=== PATIENT | female | born 1985 | race Caucasian/White ===

== ENCOUNTER 2016-09-28 12:10 | Emergency (ER) | payer MEDICAID ==
[~2016-09-28] VITALS: Wt 90.5 kg
[2016-09-28 13:36] LABS: URINE BLOOD (Dip) POC Negative (NEGATIVE)
[2016-09-28 13:50] LABS: BASOPHILS % 0.5 % (0.0-2.0); EOSINOPHILS % 0.4 % (0.0-7.0); HEMATOCRIT 33.7 % (37.0-47.0); HEMOGLOBIN 11.4 g/dl (12.0-16.0); LYMPHOCYTES % 21.2 % (15.0-51.0); MEAN CORPUSCULAR HEMOGLOBIN 26.4 pg (29.0-33.0); MEAN CORPUSCULAR HGB CONC 33.8 g/dl (32.0-37.0); MEAN PLATELET VOLUME 8.3 fl (7.4-10.4); MONOCYTE # 0.6 10^3/ul (0.3-0.9); MONOCYTES % 6.4 % (0.0-11.0); NEUTROPHIL # 6.6 10^3/ul (1.6-7.5); NEUTROPHILS % 71.5 % (39.0-77.0); PLATELET COUNT 331 10^3/UL (140-440); RED BLOOD COUNT 4.32 10^6/ul (4.20-5.40); RED CELL DISTRIBUTION WIDTH 15.4 % (11.5-14.5); UNCORRECTED WBC 9.2 10^3/ul (4.8-10.8); WHITE BLOOD COUNT 9.2 10^3/ul (4.8-10.8)
[2016-09-28 13:51] LABS: CONDITION 1; LH ANALYZER COMMENTS 1
--- NOTE | 2016-09-28 13:58 | RADRPT ---
PROCEDURE: US OB. CLINICAL INDICATION: Vaginal bleeding. TECHNIQUE: Transabdominal and transvaginal imaging of the uterus was performed. COMPARISON: None. FINDINGS: A single intrauterine is present with identification of a gestational sac, pole, and yolk sac. [place] rump length measures 4.0 cm, corresponding to a gestational age of 11 weeks 0 days. Real time examination shows no cardiac activity. No myoma or adnexal mass. Bilateral ovaries are not visualized. IMPRESSION: 1. Single intrauterine gestation of approximately 11 weeks 0 days. There is no cardiac activity, c ompatible with failure. RPTAT: EE .Micah Melissa MD, MD Date Time Electronically viewed and signed by .Micah Melissa MD, MD on 09/28/2016 14:02 .C/
--- NOTE | 2016-09-28 14:51 | ERD ---
ER Documentation Chief Complaint Date/Time DATE: 09/28/16 TIME: 14:46 Chief Complaint 12 WKS PREG WITH SOME VAG SPOTTING THIS MORNING. NO DYSURIA HPI This is a 31-year-old female presents emergency department for vaginal bleeding starting this morning. Patient states she is currently 12 weeks with last menstrual period 07/06/2016. A2 . Patient has had 2 sections. Denies dysuria or hematuria. Denies any heavy menstrual bleeding, blood clots or passage of tissue. Denies any vaginal discharge or itching. No vaginal lesions. Describes vaginal bleeding as light spotting. No fevers or chills. No pelvic pain or abdominal pain. No nausea, vomiting or diarrhea. No shortness of breath or difficulty breathing. No chest pain or wheezing. ROS All systems reviewed and are negative except as per history of present illness. Allergies Allergies: Coded Allergies: No Known Allergy (Unverified , 09/04/14) PMhx/Soc History of Surgery: Yes () Anesthesia Reaction: No Hx Neurological Disorder: No Hx Respiratory Disorders: No Hx Cardiac Disorders: No Hx Psychiatric Problems: No Hx Miscellaneous Medical Probl: No Hx Alcohol Use: No Hx Substance Use: No Hx Tobacco Use: No Physical Exam Vitals Vital Signs Date Time Temp Pulse Resp B/P Pulse Ox O2 Delivery O2 Flow Rate FiO2 09/28/16 12:14 98.9 87 21 139/86 99 Physical Exam Const: No acute distress, alert Head: Atraumatic Eyes: Normal Conjunctiva ENT: Normal External Ears, Nose and Mouth. Neck: Full range of motion..~ No meningismus. Resp: Clear to auscultation bilaterally. No wheezing, rhonchi or crackles. Cardio: Regular rate and rhythm, no murmurs Abd: Soft, non tender, non distended. Normal bowel sounds Skin: No petechiae or rashes Back: No midline or flank tenderness Ext: No cyanosis, or edema Neur: Awake and alert Psych: Normal Mood and Affect Result Diagram: 09/28/16 1323 Results 24 hrs Laboratory Tests Test 09/28/16 13:23 09/28/16 13:37 Basophils # 0.010^3/ul Basophils % 0.5% Beta HCG, Quantitative 21647.0mIU/ml Blood Morphology Comment Eosinophils # 0.010^3/ul Eosinophils % 0.4% Hematocrit 33.7% Hemoglobin 11.4g/dl Lymphocytes # 2.010^3/ul Lymphocytes % 21.2% Mean Corpuscular Hemoglobin 26.4pg Mean Corpuscular Hemoglobin Concent 33.8g/dl Mean Corpuscular Volume 78.0fl Mean Platelet Volume 8.3fl Monocytes # 0.610^3/ul Monocytes % 6.4% Neutrophils # 6.610^3/ul Neutrophils % 71.5% Nucleated Red Blood Cells # 0.010^3/ul Nucleated Red Blood Cells % 0.0/100WBC Platelet Count 24287^3/UL Red Blood Count 4.3210^6/ul Red Cell Distribution Width 15.4% White Blood Count 9.210^3/ul Bedside Urine Blood Negative Bedside Urine Glucose (UA) Negative Bedside Urine Ketones (LAB) Negative Bedside Urine Leukocyte Esterase (L Negative Bedside Urine Nitrite (LAB) Negative Bedside Urine Protein (LAB) 1+ Bedside Urine pH (LAB) 5.5 Procedures/MDM ED COURSE: The patient was stable throughout ED course. I kept the patient and/or family informed of laboratory and diagnostic imaging results throughout the ED course. Laboratory CBC Hgb 11.4 Beta-hCG 07171.0 Type and Rh factor Urine dip 1+ protein Imaging Patient: YANE GAVIRIA : 1985 Age: 31 Sex: F MR #: [id number] DOS: 09/28/16 1319 Ordering MD: SHAWANDA GRECO NP Location: [facility] Room/Bed: PROCEDURE: US OB. CLINICAL INDICATION: Vaginal bleeding. TECHNIQUE: Transabdominal and transvaginal imaging of the uterus was performed. COMPARISON: None. FINDINGS: A single intrauterine is present with identification of a gestational sac, pole, and yolk sac. [place] rump length measures 4.0 cm, corresponding to a gestational age of 11 weeks 0 days. Real time examination shows no cardiac activity. No myoma or adnexal mass. Bilateral ovaries are not visualized. IMPRESSION: 1. Single intrauterine gestation of approximately 11 weeks 0 days. There is no cardiac activity, compatible with failure. MDM: This is a 31-year-old female presenting to the ER for vaginal bleeding while . Patient is currently 12 weeks with last menstrual period 07/06/2016. A2. Labs show slight anemia with hemoglobin 11.4. Beta hCG 45493.0. Urine is negative for infection. OB ultrasound reviewed by radiologist shows single intrauterine gestation of approximately 11 weeks 0 days. There is no cardiac activity, compatible with failure. Discussed findings at length with patient. Copies of diagnostic tests provided. Patient's diagnosis is demise. Patient is appropriate for outpatient management and encouraged to follow-up with [employer] [employer] [facility] as soon as possible. Return to ED for any high fever, chest pain, difficulty breathing, shortness breath, wheezing, vomiting, diarrhea, abdominal pain or any new or worsening symptoms. Patient verbalizes understanding. All questions answered at discharge. Departure Diagnosis: Primary Impression: demise Condition: Stable SHAWANDA GRECO NP Sep 28, 2016 14:51
== END 2016-09-28 15:10 | disposition home or self-care (01) ==
LOC: FTE 12:10
DX: O02.1 Missed abortion (principal)
CPT/HCPCS: 36415; 76801; 81003; 84702; 85025; 86900; 86901; Z7502